=== PATIENT | female | born 1955 | race Caucasian/White ===

== ENCOUNTER → 2017-10-12 | Outpatient (CLI) | payer BC ==
[~2017-10-12] MED LIST: EST625 PO; ESTR0.5T16 PO; HYDR-385 PO; KET10 PO; LEVO75TA68 PO; LEVO88TA42 PO; OMEP-218 PO; VERA120T71 PO
--- NOTE | 2017-10-12 13:30 | RADIOLOGY IMAGING REPORT ---
FACILITY: [facility] - [place] PATIENT NAME: Mimi Marin : 1955 MR: [id number] V: [id number] EXAM DATE: ORDERING PHYSICIAN: MERYL COPE TECHNOLOG[place]: [place] [facility] [place] : 1955 Visit/Account:[id number] Date of Sevice: 10/12/2017 Technique: PELVIC HISTORY: Partial hysterectomy Comparison studies: CT abdomen pelvis October 08, 2016 FINDINGS: Grayscale and color images were performed of the pelvis utilizing transabdominal and transv aginal ultrasound interrogation. The patient is status post hysterectomy and left oophorectomy. The right ovary is not visualized sonographically. No free fluid is identified. No mass or lymphadenop athy is noted. IMPRESSION: 1. No acute abnormality identified. 2. Hysterectomy with left-sided oophorectomy. Please note the right ovary is not visualized sonogra phically. Report Dictated By: Cleve Quinteros DO at 10/12/2017 1:24 PM Report E-Signed By: Cleve Quinteros DO at 10/12/2017 1:26 PM WSN:[email or web address]
== END ==
LOC: US 02:29
PROVIDERS: ATTEND Family Medicine
DX: Z90.710 Acquired absence of both cervix and uterus (principal); Z90.721 Acquired absence of ovaries, unilateral
CPT/HCPCS: 76856

== ENCOUNTER → 2018-08-02 | Outpatient (CLI) | payer BC ==
--- NOTE | 2018-08-02 16:42 | RADIOLOGY IMAGING REPORT ---
FACILITY: [facility] [place] PATIENT NAME: Mimi Marin : 1955 MR: [id number] V: [id number] EXAM DATE: ORDERING PHYSICIAN: MERYL COPE TECHNOLOGIST: Location: [facility] - [place] Patient: Mimi Marin : 1955 Visit/Account:[id number] Date of Sevice: 08/02/2018 THYROID HISTORY: Thyroid cyst COMPARISON: February 15, 2015 FINDINGS: SIZE: Right lobe: 4 x 1.3 x 1.5 cm cm Left lobe: 3 x 1 x 1.2 cm cm Isthmus: 4 mm PARENCHYMA: Diffusely heterogeneous bilaterally NODULES: Right lobe: * None discrete. Left lobe: * 4 mm peripherally calcified nodule in the superior pole the left lobe appears unchanged Isthmus: * None discrete. VASCULARITY: Increased bilaterally ADDITIONAL FINDINGS: None. IMPRESSION: Both lobes of thyroid gland appear very heterogeneous and hypervascular although similar to the prior study 4 mm calcified nodule superior pole of the left lobe appears stable and is of doubtful significance REFERENCE: 2015 [place] [employer] Management Guidelines for Adult Patients with Thyroid Nodules and D ifferentiated Thyroid Cancer: The [place] Thyroid [employer] Guidelines Task Force on Thyroid Nodul es and Differentiated Thyroid Cancer. SONOGRAPHIC PATTERNS: * Benign: Purely cystic nodules (no solid component); estimated risk of malignancy <1 percent; no bi opsy recommended. * Very Low Suspicion: Spongiform or partially cystic nodules without any of the sonographic features described in low, intermediate, or high suspicion patterns; estimated risk of malignancy <3 percent; consider FNA at > 2 cm (Observation without FNA is also a reasonable option). * Low Suspicion: Isoechoic or hyperechoic solid nodule, or partially cystic nodule with eccentric so lid areas, without microcalcification, irregular margin or ETE (extra-thyroidal extension), or taller than wide shape; estimated risk of malignancy 5-10 percent; recommend FNA at >1.5 cm. * Intermediate Suspicion: Hypoechoic solid nodule with smooth margins without microcalcifications, E TE (extra-thyroidal extension), or taller than wide shape; estimated risk of malignancy 10-20 percent ; recommend FNA at > 1 cm. * High Suspicion: Solid hypoechoic nodule or solid hypoechoic component of a partially cystic nodule with one or more of the following features: irregular margins (infiltrative, microlobulated), microc alcifications, taller than wide shape, rim calcifications with small extrusive soft tissue component, evidence of ETE (extra-thyroidal extension); estimated risk of malignancy >70-90 percent; recommend FNA at > 1 cm. NOTES: * Although a sonographically suspicious subcentimeter thyroid nodule without evidence of extrathyroi duane extension or sonographically suspicious lymph nodes may be observed with close sonographic follow -up rather than pursuing immediate FNA, patient age and preference may modify decision-making. A > 50% interval increase in nodule volume and/or development of new suspicious sonographic features are felt to be a valid reasons for potential re-aspiration of a nodule previously shown to have benig n FNA cytology. Report Dictated By: Quiana Merino MD at 08/02/2018 4:33 PM Report E-Signed By: Quiana Merino MD at 08/02/2018 4:36 PM WSN:[email or web address]
== END ==
LOC: US 01:24
PROVIDERS: ATTEND Family Medicine
DX: E04.2 Nontoxic multinodular goiter (principal)
CPT/HCPCS: 76536

== ENCOUNTER → 2018-08-19 | Outpatient (CLI) | payer BC ==
--- NOTE | 2018-08-19 10:09 | RADIOLOGY IMAGING REPORT ---
FACILITY: [facility] PATIENT NAME: KASSI LINDSEY : [id number] MR: [id number] V: [id number] EXAM DATE: [id number] ORDERING PHYSICIAN: MERYL COPE TECHNOLOGIST: Ally Graff PROCEDURE:BILATERAL DIGITAL SCREENING MAMMOGRAM WITH CAD ASSISTED INTERPRETATION & 3D TOMOSYNTHESIS COMPARISON: INDICATIONS:SCREENING FINDINGS: The breasts are heterogeneously dense which can obscure small masses. The parenchymal pattern has remained stable allowing for difference in mammographic technique & patient positioning. DIAGNOSTIC CATEGORY 1--NEGATIVE. RECOMMENDATIONS: ROUTINE MAMMOGRAM AND CLINICAL EVALUATION. IMPRESSION: BIRADS 1: Negative. No significant abnormality is seen. Dictated by: Quiana Merino M.D. on 08/19/2018 at 8:52 Transcribed by: CASSI on 08/19/2018 at 9:31 Approved by: Quiana Merino M.D. on 08/19/2018 at 10:08 [facility]
== END ==
LOC: MAMO 01:15
PROVIDERS: ATTEND Family Medicine
DX: Z12.31 Encounter for screening mammogram for malignant neoplasm of breast (principal)
CPT/HCPCS: 77063; 77067

== ENCOUNTER 2018-09-07 01:47 | Day surgery (SDC) | payer BC ==
[~2018-09-07] VITALS: Ht 157.5 cm; Wt 55.8 kg
[~2018-09-07 01:47] MED LIST changes: +LEVO88TA43 PO
[2018-09-07] MEDS ORDERED: LIDOCAINE/SOD BICARB 8.4% SYR ID ONE (05:25)
[2018-09-07] MEDS ORDERED: NORMOSOL R SOLN(*) 1000 ML BAG 1,000 ML IV PRN (05:25)
[2018-09-07] MEDS ORDERED: MIDAZOLAM 2 MG/2 ML VIAL IVP PRN (05:25)
[2018-09-07] MEDS ORDERED: FAMOTIDINE 20 MG TAB PO ONE (10:35)
[2018-09-07 10:36] VITALS: BP 162/85
[2018-09-07] MEDS ORDERED: BACITRACIN OINT 15 GM TUBE TP ONE (11:16)
[2018-09-07] MEDS ORDERED: LIDO/EPI 1% MPF 1:200,000 30ML ONE (11:16)
[2018-09-07] MEDS ORDERED: PROPOFOL EMUL(*) 10MG/ML 20 ML 20 ML ONE (12:00)
[2018-09-07 14:19] VITALS: BP 131/65
[2018-09-07 14:30] VITALS: BP 120/81
[2018-09-07 14:45] VITALS: BP 133/80
[2018-09-07 14:52] VITALS: BP 145/83
[2018-09-07 14:54] VITALS: BP 137/83
--- NOTE | 2018-09-07 15:26 | NUR ---
1419: pt is alert on arrival, report from juwan herron 1421: pt states she is slightly dizzy, pt is given jello and more water, tolerated well 1432: dr petersen at bedside 1446; pt is stating she is not dizzy any more, pt is given pudding, tolerated well. iv fluids empty, dc'ed 1446: pt states she has to use the restroom, orthostatic bp's 1455: pt s helped to restroom. pt sates she is ready to go home 1500: pt is dressing with help of 1505: discharge instructions addressed with pt and , state understanding 1515: pt is taken to car in wheelchair by kimberly grey
--- NOTE | 2018-09-21 16:40 | OPERATIVE REPORT 1 ---
EVENT DATE: September 07, 2018 SURGEON: Gilles Gomez MD ANESTHESIOLOGIST: Gilles Swanson MD ANESTHESIA: LMA general. PREOPERATIVE DIAGNOSIS Status post basal cell carcinoma left malar, multiple resections, complicated with multiple abscess formations over three months by another physician group (code D48.1). POSTOPERATIVE DIAGNOSIS Status post basal cell carcinoma left malar, multiple resections, complicated with multiple abscess formations over three months by another physician group (code D48.1). PROCEDURES PERFORMED 1. Excision possible remainder malignant lesion, left malar (code 12170). 2. Myocutaneous flap reconstruction, left malar, 12 cm (code 43131). DESCRIPTION OF PROCEDURE The patient was taken to the operating room, and LMA inserted, and general anesthesia administered. The patient was prepped and draped in the usual sterile fashion. Celluvisc eye drops were used for cornea protection and proparacaine eye drops for corneal anesthesia at postop. The patient was taken to the operating room having had multiple abscess formations and multiple suture removals by other physicians since before May 2018. She most recently had a large amount of abscess material expressed from a small opening in the partially healed surgical wound. Our plan is to excise the wound and abscess material and again get pathology to rule out residual basal cell carcinoma. A photograph was made of the incision, and after the administration of local anesthesia using Xylocaine 2% with epinephrine, the previous surgical incision scar was excised. There was a large amount of scar tissue down to the buccal mucosa which was excised and sent to Pathology for confirmation of tumor-free existence. Care was taken to avoid the branch of the facial artery and the branches of the facial nerve to upper and lower lips. The defect then was undermined generously to allow a sliding myocutaneous flap reconstruction. Using a subcuticular running suture of 6-0 nylon, the wound edges were approximated and perfected with multiple 6-0 nylon sutures in an interrupted fashion. There were no signs of infection, so it was not felt necessary to use IV antibiotics. The patient was awakened having tolerated the procedure in good condition. Postoperatively, a Steri-Strip support dressing was placed. At approximately one week, the sutures were partially removed and at three weeks totally removed without recurrence of abscess formation and with excellent wound healing. ANSHUL
== END 2018-09-07 14:18 | disposition home or self-care (01) ==
LOC: OR 01:47
PROVIDERS: ATTEND Ophthalmology
DX: D48.1 Neoplasm of uncertain behavior of connective and other soft tissue (principal)
CPT/HCPCS: 11642; 14061; 88305; J2704